=== PATIENT | male | born 1965 | race Caucasian/White ===

== ENCOUNTER 2021-11-13 08:50 | Outpatient (CLI) | payer BC, SELFPAY ==
--- NOTE | 2021-11-13 08:45 | RT.EKG_ITS ---
APPROVED REPORT Exam: Resting ECG Reason for Exam: Patient Location: O HR:70 bpm ECG Measurements Heart Rate 70 AXIS RI 156 P 21 QRSd 77 QRS 17 QT 377 T 16 QTc 407 Conclusion Sinus rhythm...normal P axis, V-rate 50- 99 early transition...QRS area>0 in V2 Probable left ventricular hypertrophy...multiple LVH criteria Baseline wander in lead(s) V4,V5
== END 2021-11-13 08:51 | disposition home or self-care (01) ==
PROVIDERS: PCP Internal Medicine Sleep Medicine; Visit Provider Internal Medicine Cardiovascular Disease
DX: I10 Essential (primary) hypertension (principal); R00.2 Palpitations; R94.31 Abnormal electrocardiogram [ECG] [EKG]
CPT/HCPCS: 93010